=== PATIENT | male | born 1965 | race Caucasian/White ===

== ENCOUNTER 2017-01-31 10:31 | Emergency (ER) | payer BC, MEDICAID ==
[~2017-01-31] VITALS: Ht 162.6 cm; Wt 96.0 kg
[~2017-01-31 10:31] MED LIST: Z.0.NO CURRENT MEDS
[2017-01-31 10:44] VITALS: BP 174/84; PULSE 67; RESP 16; TEMP 97.8; O2SAT 97
[2017-01-31] MEDS ORDERED: LISI2.5T3 PO (10:54)
[2017-01-31] MEDS ORDERED: AMLO2.5T PO (10:54)
[2017-01-31] MEDS ORDERED: LISI40TA PO (11:06)
[2017-01-31] MEDS ORDERED: AMLO10TA2 PO (11:06)
--- NOTE | 2017-01-31 11:06 | PD ---
HPI Chief Complaint: Medication Refill Request Time Seen by Provider: 10:53 Travel History International Travel<30 days: No Contact w/Intl Traveler<30days: No Traveled to known affect area: No History of Present Illness HPI 51-year-old male presents to emergency department requesting refills of his blood pressure medication. Patient states that he has been down in [place] for approximately 3-4 days and forgot his medication. Patient states that his primary care physician refilled his medications but unfortunately left his medication in [place]. Patient denies any other issues or complaints today. 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") Hypertension: Yes Musculoskeletal: Yes ("right carpal tunnel,left knee pops out,left shoulder dislocates sometimes") Seizures: Yes Past Surgical History Abdominal Surgery: Yes (right inguinal hernia) Other Surgery: Yes ("facial reconstruction,titanium and screws") Social History Alcohol Use: No Tobacco Use: Yes ("one pack of cigarettes a day") Substance Use: No Allergies-Medications (Allergen,Severity, Reaction): Coded Allergies: No Known Allergies (Verified Adverse Reaction, Unknown, 01/31/17) Reported Meds & Prescriptions Reported Meds & Active Scripts Active Lisinopril 40 Mg Tab 40 Mg PO DAILY Amlodipine (Amlodipine Besylate) 10 Mg Tab 10 Mg PO DAILY Reported Lisinopril 2.5 Mg Tab Unknown Dose PO DAILY Amlodipine (Amlodipine Besylate) 2.5 Mg Tab Unknown Dose PO DAILY Review of Systems Except as stated in HPI: all other systems reviewed are Neg Physical Exam Narrative GENERAL: Well-nourished, well-developed patient. SKIN: Focused skin assessment warm/dry. HEAD: Normocephalic. EYES: No scleral icterus. No injection or drainage. NECK: Supple, trachea midline. No JVD or lymphadenopathy. CARDIOVASCULAR: Regular rate and rhythm without murmurs, gallops, or rubs. RESPIRATORY: Breath sounds equal bilaterally. No accessory muscle use. MUSCULOSKELETAL: No cyanosis, or edema. BACK: Nontender without obvious deformity. No CVA tenderness. Data Data Last Documented VS Vital Signs Date Time Temp Pulse Resp B/P (MAP) Pulse Ox O2 Delivery O2 Flow Rate FiO2 01/31/17 10:44 97.8 67 16 174/84 (114) 97 Orders Orders Ed Discharge Order (01/31/17 11:07) [facility] Medical Decision Making Medical Screen Exam Complete: Yes Emergency Medical Condition: Yes Differential Diagnosis Medication refill, hypertension, noncompliance Narrative Course 51-year-old male presents to emergency department requesting refills of his blood pressure medication. Patient states that he has been down in [place] for approximately 3-4 days and forgot his medication. Patient states that his primary care physician refilled his medications but unfortunately left his medication in [place]. Patient denies any other issues or complaints today. Physical exam findings unremarkable. Vital signs stable, consistent with a history of hypertension. Patient initially stated he do not know the dosages of his medication but recalled after further evaluation and questioning. Patient states he takes amlodipine 10 mg and lisinopril 40 mg daily for his blood pressure. He denies any other complaints or issues today. He appreciates the care and assistance with his medication refill. Patient advised to follow-up with primary care physician as she is moving from [place]. Diagnosis Primary Impression: Encounter for medication refill Referrals: [facility] Additional Instructions: Follow-up a primary care physician within 2-3 days. Take medication as prescribed. If your symptoms persist or worsen return to the emergency department. Scripts Lisinopril (Lisinopril) 40 Mg Tab 40 MG PO DAILY for Blood Pressure Management, #30 TAB 0 Refills Prov: Deshawn Aragon MD 01/31/17 Amlodipine (Amlodipine) 10 Mg Tab 10 MG PO DAILY for Blood Pressure Management, #30 TAB 0 Refills Prov: Deshawn Aragon MD 01/31/17 Disposition: 01 DISCHARGE HOME Condition: Stable Grecia Pascual Jan 31, 2017 11:06
== END 2017-01-31 11:22 | disposition home or self-care (01) ==
LOC: PHEFT 10:31
DX: Z76.0 Encounter for issue of repeat prescription (principal); I10 Essential (primary) hypertension; J45.909 Unspecified asthma, uncomplicated; F17.210 Nicotine dependence, cigarettes, uncomplicated
CPT/HCPCS: 99281

== ENCOUNTER 2017-03-21 10:54 | Emergency (ER) | payer BC ==
[~2017-03-21] VITALS: Ht 165.1 cm; Wt 96.4 kg
[~2017-03-21 10:54] MED LIST changes: +AMLO10TA2 PO; +AMLO2.5T PO; +LISI2.5T3 PO; +LISI40TA PO; -Z.0.NO CURRENT MEDS
[2017-03-21 11:17] VITALS: BP 161/81; PULSE 88; RESP 16; TEMP 98.9; O2SAT 96
[2017-03-21] MEDS ORDERED: SODIUM CHLOR 0.9% 1000 ML INJ 1,000 ML IV SCH (11:32)
[2017-03-21 11:41] LABS: BILIRUBIN, URINE NEG (NEG); BLOOD, URINE NEG (NEG); GLUCOSE,URINE NEG (NEG); KETONE, URINE NEG (NEG); NITRITE,URINE NEG (NEG); URINE LEUKOCYTE ESTERASE NEG (NEG)
[2017-03-21 11:45] LABS: URINE COLOR STRAW (YELLW/STRAW)
[2017-03-21] MEDS ORDERED: MORPHINE SULFATE 4 MG/ML INJ IV PUSH ONE (11:45)
[2017-03-21] MEDS ORDERED: SODIUM CHLORIDE 0.9% FLUSH 10 ML FLUSH IV FLUSH PRN (11:45)
[2017-03-21] MEDS ORDERED: ONDANSETRON HCL 4 MG/2 ML VIAL IVP ONE (11:45)
[2017-03-21 11:46] LABS: AMORPHOUS SEDIMENT, URINE FEW; SQUAMOUS EPITHELIAL CELL URINE 0-5 /hpf (0-5)
--- NOTE | 2017-03-21 11:46 | PD ---
HPI . Abdominal pain Chief Complaint: Abdominal Pain Time Seen by Provider: 11:26 Travel History International Travel<30 days: No Contact w/Intl Traveler<30days: No Traveled to known affect area: No History of Present Illness HPI Presents with chief complaint of lower abdominal pain. Onset last night. He also has low back pain. He rates his pain 7/10 and states that it is getting progressively worse. Pain is exacerbated by coughing, urinating and defecating. Associated symptoms include sweating and nausea but no vomiting or diarrhea. He states that his appetite has been good. He denies any previous similar history. The patient is also requesting a second temporary refill for his blood pressure medications. I have explained the patient that this needs to come from his primary care provider. It is his responsibility to obtain a primary care provider since moving here from [place]. 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") Hypertension: Yes Musculoskeletal: Yes ("right carpal tunnel,left knee pops out,left shoulder dislocates sometimes") Seizures: Yes Influenza Vaccination: No Past Surgical History Abdominal Surgery: Yes (right inguinal hernia) Other Surgery: Yes ("facial reconstruction,titanium and screws") Social History Alcohol Use: No Tobacco Use: Yes ("one pack of cigarettes a day") Substance Use: No Allergies-Medications (Allergen,Severity, Reaction): Coded Allergies: No Known Allergies (Verified Adverse Reaction, Unknown, 03/21/17) Reported Meds & Prescriptions Reported Meds & Active Scripts Active Phenergan (Promethazine HCl) 25 Mg Tablet 25 Mg PO Q6H PRN [place] (Hydrocodone-Acetaminophen) 5 Mg-325 Mg Tab 1 Tab PO Q4H PRN Flagyl (Metronidazole) 500 Mg Tab 500 Mg PO BID Bactrim DS (Sulfamethoxazole-Trimethoprim) 800-160 Mg Tab 1 Tab PO BID Lisinopril 40 Mg Tab 40 Mg PO DAILY Amlodipine (Amlodipine Besylate) 10 Mg Tab 10 Mg PO DAILY Review of Systems Except as stated in HPI: all other systems reviewed are Neg General / Constitutional: No: Fever, Chills Cardiovascular: No: Chest Pain or Discomfort Respiratory: No: Cough Gastrointestinal: Positive: Nausea, Abdominal Pain, No: Vomiting, Diarrhea, Constipation, Loss of Appetite Genitourinary: Positive: Other (urination exacerbates his suprapubic pain), No : Urgency, Frequency, Dysuria Physical Exam Narrative Vital Signs Date Time Temp Pulse Resp B/P (MAP) Pulse Ox O2 Delivery O2 Flow Rate FiO2 03/21/17 13:12 98 Room Air 03/21/17 11:17 98.9 88 16 161/81 (107) 96 GENERAL: Lying on the stretcher in no apparent distress. SKIN: warm/dry. Normal color and turgor. HEAD: Normocephalic. Atraumatic. EYES: Pupils equal and round. No scleral icterus. No injection or drainage. ENT: No nasal bleeding or discharge. Mucous membranes pink and moist. NECK: Trachea midline. Full range of motion without pain.. CARDIOVASCULAR: Regular rate and rhythm. Heart sounds normal. RESPIRATORY: No accessory muscle use. Clear to auscultation. Breath sounds equal bilaterally. GASTROINTESTINAL: Abdomen soft. Suprapubic tenderness. Bowel sounds present. Nondistended. MUSCULOSKELETAL: No obvious deformities. NEUROLOGICAL: Awake and alert. No obvious cranial nerve deficits. Motor grossly within normal limits. Normal speech. PSYCHIATRIC: Appropriate mood and affect; insight and judgment normal. Data Data Last Documented VS Vital Signs Date Time Temp Pulse Resp B/P (MAP) Pulse Ox O2 Delivery O2 Flow Rate FiO2 03/21/17 13:12 98 Room Air 03/21/17 11:17 98.9 88 16 161/81 (107) Orders Orders Urinalysis - C+S If Indicated (03/21/17 10:56) Complete Blood Count With Diff (03/21/17 11:32) Comprehensive Metabolic Panel (03/21/17 11:32) Lactic Acid (03/21/17 11:32) Ct Abd/Pel W Iv Contrast(Rout) (03/21/17 11:32) Iv Access Insert/Monitor (03/21/17 11:32) Ecg Monitoring (03/21/17 11:32) Oximetry (03/21/17 11:32) Morphine Inj (Morphine Inj) (03/21/17 11:45) Ondansetron Inj (Zofran Inj) (03/21/17 11:45) Sodium Chlor 0.9% 1000 Ml Inj (Ns 1000 M (03/21/17 11:32) Sodium Chloride 0.9% Flush (Ns Flush) (03/21/17 11:45) Iohexol 350 Inj (Omnipaque 350 Inj) (03/21/17 12:46) Ciprofloxacin 400 Mg Premix (Cipro 400 M (03/21/17 13:15) Metronidazole 500 Mg Inj (Flagyl 500 Mg (03/21/17 13:15) Labs Laboratory Tests Test 03/21/17 11:32 03/21/17 12:00 Urine Collection Type CLEAN CATCH Urine Color STRAW Urine Turbidity CLEAR Urine pH 7.0 Urine Specific [place] 1.004 Urine Protein NEG mg/dL Urine Glucose (UA) NEG mg/dL Urine Ketones NEG mg/dL Urine Occult Blood NEG Urine Nitrite NEG Urine Bilirubin NEG Urine Leukocyte Esterase NEG Urine Squamous Epithelial Cells 0-5 /hpf Urine Amorphous Sediment FEW Microscopic Urinalysis Comment CULT NOT INDICATED Urine Collection Time 1132 White Blood Count 16.7 TH/MM3 Red Blood Count 5.15 MIL/MM3 Hemoglobin 14.8 GM/DL Hematocrit 44.7 % Mean Corpuscular Volume 86.9 FL Mean Corpuscular Hemoglobin 28.8 PG Mean Corpuscular Hemoglobin Concent 33.1 % Red Cell Distribution Width 13.8 % Platelet Count 266 TH/MM3 Mean Platelet Volume 7.2 FL CBC Comment AUTO DIFF Differential Total Cells Counted 100 Neutrophils % (Manual) 77 % Band Neutrophils % 3 % Lymphocytes % 10 % Monocytes % 8 % Eosinophils % 1 % Basophils % 1 % Neutrophils # (Manual) 13.4 TH/MM3 Differential Comment FINAL DIFF MANUAL Platelet Estimate NORMAL Platelet Morphology Comment NORMAL Red Cell Morphology Comment NORMAL Blood Urea Nitrogen 16 MG/DL Creatinine 0.88 MG/DL Random Glucose 104 MG/DL Total Protein 7.2 GM/DL Albumin 3.6 GM/DL Calcium Level 8.7 MG/DL Alkaline Phosphatase 76 U/L Aspartate Amino Transf (AST/SGOT) 15 U/L Alanine Aminotransferase (ALT/SGPT) 22 U/L Total Bilirubin 0.7 MG/DL Sodium Level 136 MEQ/L Potassium Level 3.8 MEQ/L Chloride Level 102 MEQ/L Carbon Dioxide Level 25.6 MEQ/L Anion Gap 8 MEQ/L Estimat Glomerular Filtration Rate 91 ML/MIN Lactic Acid Level 0.8 mmol/L MDM Medical Decision Making Medical Screen Exam Complete: Yes Emergency Medical Condition: Yes Differential Diagnosis Differential diagnosis of abdominal pain includes but is not limited to gastritis, pancreatitis, hepatitis, gastroenteritis, gallbladder disease, constipation, urinary retention, UTI, peptic ulcer disease, diverticulitis or appendicitis Narrative Course This patient presents with chief complaint of lower abdominal pain. He has some lower abdominal tenderness on exam. I have ordered a urinalysis, CBC, conference a metabolic panel, CT of the abdomen. In the interim, he will be treated with IV fluids, IV morphine and IV Zofran. UA neg. CBC & BMP Diagram 03/21/17 12:00 Total Protein 7.2, Albumin 3.6, Calcium Level 8.7, Alkaline Phosphatase 76, Aspartate Amino Transf (AST/SGOT) 15, Alanine Aminotransferase (ALT/SGPT) 22, Total Bilirubin 0.7 CT: 1. Diverticulitis of the sigmoid colon with minimal extraluminal air. 2. No abscess or fluid collection. I will treat him with Cipro and Flagyl. Diagnosis Primary Impression: Abdominal pain Qualified Codes: R10.30 - Lower abdominal pain, unspecified Additional Impression: Diverticulitis Patient Instructions: Diverticulitis (DC), General Instructions, Narcotic given in the ED Med/Other Pt SpecificInfo: Prescription(s) given Scripts Promethazine (Phenergan) 25 Mg Tablet 25 MG PO Q6H Y for NAUSEA OR VOMITING, #12 TAB 0 Refills Prov: Shaista Camacho MD 03/21/17 Hydrocodone-Acetaminophen ([place]) 5 Mg-325 Mg Tab 1 TAB PO Q4H Y for PAIN, #12 TAB 0 Refills Prov: Shaista Camacho MD 03/21/17 Metronidazole (Flagyl) 500 Mg Tab 500 MG PO BID for Infection, #14 TAB 0 Refills Prov: Shaista Camacho MD 03/21/17 Sulfamethoxazole-Trimethoprim (Bactrim DS) 800-160 Mg Tab 1 TAB PO BID for Infection, #20 TAB 0 Refills Prov: Shaista Camacho MD 03/21/17 Disposition: 01 DISCHARGE HOME Condition: Stable Shaista Camacho MD Mar 21, 2017 11:46
[2017-03-21 12:15] LABS: HEMATOCRIT 44.7 % (39.0-51.0); HEMOGLOBIN 14.8 GM/DL (13.0-17.0); MEAN CELL VOLUME 86.9 FL (80.0-100.0); MEAN CORPUSCULAR HEMOGLOBIN 28.8 PG (27.0-34.0); MEAN CORPUSCULAR HGB CONC 33.1 % (32.0-36.0); MEAN PLATELET VOLUME 7.2 FL (7.0-11.0); PLATELET COUNT 266 TH/MM3 (150-450); RED BLOOD COUNT 5.15 MIL/MM3 (4.50-5.90); RED CELL DISTRIBUTION WIDTH 13.8 % (11.6-17.2); WHITE BLOOD COUNT 16.7 TH/MM3 (4.0-11.0)
[2017-03-21 12:23] LABS: CHLORIDE 102 MEQ/L (98-107); SODIUM (NA) 136 MEQ/L (136-145)
[2017-03-21 12:26] LABS: CALCIUM 8.7 MG/DL (8.5-10.1)
[2017-03-21 12:27] LABS: ALBUMIN 3.6 GM/DL (3.4-5.0); BICARBONATE 25.6 MEQ/L (21.0-32.0); BLOOD UREA NITROGEN 16 MG/DL (7-18); GLUCOSE,RANDOM 104 MG/DL (74-106)
[2017-03-21 12:30] LABS: ALT (GPT) 22 U/L (12-78); AST (GOT) 15 U/L (15-37); CREATININE 0.88 MG/DL (0.60-1.30); GLOMERULAR FILTRATION RATE 91 ML/MIN (>89)
[2017-03-21 12:31] LABS: TOTAL BILIRUBIN ADULT 0.7 MG/DL (0.2-1.0); TOTAL PROTEIN 7.2 GM/DL (6.4-8.2)
[2017-03-21 12:33] LABS: ALKALINE PHOSPHATASE 76 U/L (45-117)
[2017-03-21] MEDS ORDERED: IOHEXOL 350 MG/ML 10 ML VIAL (for RAD DIAG) IVCONTRAST ONE (12:46)
--- NOTE | 2017-03-21 12:56 | RADRPT ---
EXAM DATE/TIME: 03/21/2017 12:42 [facility] COMPARISON: No previous studies available for comparison. INDICATIONS : Bilateral lower back and inguinal pain since last night. IV CONTRAST: 95 cc Omnipaque 350 (iohexol) IV ORAL CONTRAST: No oral contrast ingested. RADIATION DOSE: 21.43 CTDIvol (mGy) MEDICAL HISTORY : Hypertension. SURGICAL HISTORY : Inguinal hernia repair. ENCOUNTER: Initial ACUITY: 2 days PAIN SCALE: 4/10 LOCATION: Bilateral lower quadrant TECHNIQUE: Volumetric scanning of the abdomen and pelvis was performed. Using automated exposure control and ad justment of the mA and/or kV according to patient size, radiation dose was kept as low as reasonably achievable to obtain optimal diagnostic quality images. DICOM format image data is available electro nically for review and comparison. FINDINGS: LOWER LUNGS: The visualized lower lungs are clear. LIVER: Homogeneous density without lesion. There is no dilation of the biliary tree. No calcified gallston es. SPLEEN: Normal size without lesion. PANCREAS: Within normal limits. KIDNEYS: Normal in size and shape. There is no mass, stone or hydronephrosis. ADRENAL GLANDS: Within normal limits. VASCULAR: There is no aortic aneurysm. Slight atherosclerotic changes. BOWEL/MESENTERY: Diverticulitis of the sigmoid colon. Tiny extraluminal air identified. No fluid collection or abscess .. There is no free intraperitoneal air or fluid. ABDOMINAL WALL: Within normal limits. RETROPERITONEUM: There is no lymphadenopathy. BLADDER: No wall thickening or mass. REPRODUCTIVE: Within normal limits. INGUINAL: There is no lymphadenopathy or hernia. MUSCULOSKELETAL: Within normal limits for patient age. CONCLUSION: 1. Diverticulitis of the sigmoid colon with minimal extraluminal air. 2. No abscess or fluid collection. Ki Sunshine MD on March 21, 2017 at 12:49 Board Certified Radiologist. This report was verified electronically.
[2017-03-21 13:03] LABS: BANDS 3 % (0-6); BASOPHILS 1 % (0-2); LYMPHOCYTES 10 % (9-44); MONOCYTES 8 % (0-8); NEUTROPHIL # MANUAL DIFF 13.4 TH/MM3 (1.8-7.7); POLYS (SEG NEUTROPHILS) 77 % (16-70)
[2017-03-21 13:12] VITALS: O2SAT 98
[2017-03-21] MEDS ORDERED: CIPROFLOXACIN 400 MG PREMIX 200 ML IV ONE (13:15)
[2017-03-21] MEDS ORDERED: metroNIDAZOLE 500 MG INJ 100 ML IV ONE (13:15)
[2017-03-21] MEDS ORDERED: PROM25TA10 PO (13:17)
[2017-03-21] MEDS ORDERED: METR-1 PO (13:17)
[2017-03-21] MEDS ORDERED: BACT800T5 PO (13:17)
[2017-03-21] MEDS ORDERED: NORC5TAB PO (13:17)
== END 2017-03-21 16:03 | disposition home or self-care (01) ==
LOC: PHED 10:54 → PHEFT 16:03
DX: K57.32 Diverticulitis of large intestine without perforation or abscess without bleeding (principal); R10.30 Lower abdominal pain, unspecified; M54.5 Low back pain; R11.0 Nausea; R61 Generalized hyperhidrosis; I10 Essential (primary) hypertension; H91.92 Unspecified hearing loss, left ear; F17.200 Nicotine dependence, unspecified, uncomplicated; Z87.39 Personal history of other diseases of the musculoskeletal system and connective tissue
CPT/HCPCS: 74177; 80053; 81001; 83605; 85007; 85027; 96361; 96365; 96366; 96368; 96375; 99284; J0744; J2270; J2405; J7030; Q9967